=== PATIENT | female | born 2000 | race Caucasian/White ===

== ENCOUNTER 2023-10-25 09:21 | Day surgery (SDC) | payer OTHER ==
[~2023-10-25] VITALS: Ht 172.7 cm; Wt 85.3 kg
[~2023-10-25 09:21] MED LIST: ceFAZolin SOD 2 GM in IV 1 EA IV ONE
[2023-10-25] MEDS ORDERED: LR 1,000 ML IV SCH (09:30)
[2023-10-25] MEDS ORDERED: fentaNYL 100 MCG/2 ML INJECTION As Ordered ONE (09:54)
[2023-10-25] MEDS ORDERED: MIDAZOLAM INJ 2MG/2ML VIAL As Ordered ONE (09:54)
[2023-10-25] MEDS ORDERED: propofoL 200 MG/20 ML VIAL As Ordered ONE ×2 (09:54→11:57)
[2023-10-25] MEDS ORDERED: ONDANSETRON 4MG 2ML VIAL As Ordered ONE (09:55)
[2023-10-25] MEDS ORDERED: LIDOCAINE 2% 100MG/5ML SDV (FOR ANES.) As Ordered ONE (09:55)
[2023-10-25] MEDS ORDERED: ACETAMINOPHEN 1000MG 100ML IV BAG As Ordered ONE ×2 (10:13→11:33)
[2023-10-25] MEDS ORDERED: LIDOCAINE 1% SDV 30ML VIAL As Ordered ONE ×2 (11:09→12:35)
[2023-10-25] MEDS ORDERED: ePHEDrine SULFATE 25 MG/5 ML(5MG/ML) SYRINGE As Ordered ONE (11:59)
[2023-10-25 12:52] VITALS: BP 120/71; TEMP 97.2; O2SAT 97
== END 2023-10-25 13:12 | disposition home or self-care (01) ==
LOC: M SDC 09:21
PROVIDERS: ATTEND Podiatrist Foot & Ankle Surgery
DX: M84.871 Other disorders of continuity of bone, right ankle and foot (principal); M89.8X7 Other specified disorders of bone, ankle and foot
CPT/HCPCS: 28120; 76000; 81025; J0131; J0665; J0690; J1100; J2250; J2405; J3010

== ENCOUNTER → 2025-09-11 | Outpatient (CLI) | payer OTHER | LOC: M RAD 08:42 | PROVIDERS: ATTEND Physician Assistant | DX: M25.571 Pain in right ankle and joints of right foot (principal); M25.471 Effusion, right ankle; Z98.890 Other specified postprocedural states ==